=== PATIENT | male | born 1990 | race Caucasian/White ===

== ENCOUNTER 2016-08-20 08:41 | Emergency (ER) | payer MEDICAID ==
[~2016-08-20] VITALS: Ht 182.9 cm; Wt 89.4 kg
[2016-08-20 08:49] VITALS: BP 124/46
[2016-08-20] MEDS ORDERED: cefTRIAXone SOD 1,000 MG VL IM ONE (10:00)
== END 2016-08-20 10:32 | disposition home or self-care (01) ==
LOC: ER 08:42
DX: A54.01 Gonococcal cystitis and urethritis, unspecified (principal); Z20.2 Contact with and (suspected) exposure to infections with a predominantly sexual mode of transmission; F17.210 Nicotine dependence, cigarettes, uncomplicated
CPT/HCPCS: 81002; 96372; 99283; J0696